=== PATIENT | male | born 1930 | race Two or more races ===

== ENCOUNTER 2017-01-29 13:19 | Emergency (ER) | payer MEDICARE | END 2017-01-29 15:45 | disposition home or self-care (01) | LOC: D.US 13:19 → D.ER 13:19 → EDSTATUS 13:30 → D.US 13:30 → D.ER 15:45 | DX: M79.604 Pain in right leg (principal); W19.XXXA Unspecified fall, initial encounter; Y93.89 Activity, other specified; Y92.239 Unspecified place in hospital as the place of occurrence of the external cause; I10 Essential (primary) hypertension ==